=== PATIENT | female | born 1985 | race Caucasian/White ===

== ENCOUNTER 2017-01-16 15:09 | Emergency (ER) | payer OTHER ==
[~2017-01-16] VITALS: Ht 170.2 cm; Wt 88.6 kg
[~2017-01-16 15:09] MED LIST: ETON1VAG VG; FLUO10CA20 PO; HYDR-4003 PO; IBUP-1827 PO; TRAZ-115 PO
[2017-01-16 15:14] VITALS: BP 143/93; PULSE 101; RESP 14; O2SAT 96
--- NOTE | 2017-01-16 15:56 | ED.REPORT ---
HPI-Rash / Abscess Date of Service Jan 16, 2017 ED Provider: Abundio Mcneill MD A 31 year old female with a history of periorbital cellulitis and depression presents to the ED complaining of a rash to her face and arm that first appeared a few days ago. Patient reports that her current symptoms feel similar to her previous episodes of MRSA. Associated symptoms include subjective fever. The lesions have become increasingly worse since onset and describes the pain as "glass under her skin". Patient last menstrual cycle was 2 weeks ago and she currently uses NuvaRing. She denies history of drug use. Nursing Notes Stated Complaint: MRSA ON ARMS Chief Complaint: Skin Rash/Abscess Nursing Notes Reviewed: Yes Allergies: Coded Allergies: No Known Allergies (Unverified , 07/09/14) Scheduled Doxycycline Hyclate (Doxycycline Hyclate) 100 Mg Capsule 100 MG PO BID Fluoxetine (Fluoxetine) 10 Mg Capsule 20 MG PO DAILY Scheduled PRN Hydrocodone-Acetaminophen 5-325 mg (Hydrocodone-Acetaminophen 5-325 mg) 1 Each Tablet 1 TABLET PO Q4H PRN PRN For Pain Ibuprofen (Ibuprofen) 600 Mg Tablet 600 MG PO QID PRN PRN For Pain Trazodone (Trazodone) 50 Mg Tablet 50 MG PO HS PRN PRN For Sleep Miscellaneous Medications Etonogestrel/Ethinyl Estradiol (Nuvaring Vaginal Ring) 1 Each Vag.ring 1 EACH VG General Time Seen by MD: 15:55 Chief Complaint Rash Hx Obtained From: Patient Arrived By: Walk-in Onset Occurred: 3 days ago Symptom Duration: Since onset Location: : Arm: Head/face Quality: Painful Severity: Current: Mild Severity: Maximum: Moderate Associated with: Reports Fever (subjective) Pertinent Negative: Pt denies other symptoms Recent Healthcare: No recent doctor visit, No recent hospitalization Past Medical History Past Medical History Hx of perioribatal cellulitis in Jun and Jul. Admitted in Jul 2014 Reports: GERD Reports: Depression Past Surgical History Jaw surgery at 20 year old Smoking History Never Smoker Social History Alcohol Use: "Social" Drug Use: Denies drug use Other Social History: Good social support, Local resident Occupation Lives with boyfriend and her parents. Works at [employer]. Ambulatory Status Independent Review of Systems pain to pustules Constitutional: Reports: Fever (Subjective), Denies: Chills Respiratory: Denies: Shortness of breath Cardiovascular: Denies: Chest pain GI: Denies: Abdominal pain, Nausea, Vomiting Skin: Reports Rash Complete sys rev & neg: except as marked. Neurologic: Denies: Change LOC Physical Exam Initial Vital Signs Vital Signs (First) Date Time Temp Pulse Resp B/P Pulse Ox O2 Delivery O2 Flow Rate FiO2 01/16/17 15:14 36.7 101 14 143/93 96 Initial VS: Reviewed Head / Eyes: Atraumatic, Normocephalic, PERRL Neck: Supple, Non-tender, Full range of motion Extremities: Vascular intact, Neuro intact, No swelling, No tenderness Neurologic: Alert, Oriented, Nonfocal Psychiatric: Mood/affect normal, Behavior normal, Normal thought content General/Constitutional: Awake, Alert Skin: Atraumatic, Color NL Rash / Lesion Notes: RASH: superficial 2 in pustules to the forearm, upper arm and face. Most appear drained with overlying honeycrisp layer No cellulitis No abscess No induration Respiratory / Chest: Atraumatic, Breath sounds NL, Breath sounds = bilat, No respiratory distress Cardiovascular: Heart rate NL, Regular rhythm, Heart sounds NL, No gallop, No murmurs, No rubs Abdomen: Atraumatic, Soft, Non-tender, No distention Re-Eval/Medical Decision Med Decision/Clinical Course Patient is a 31-year-old female with a history of MRSA who presents with superficial honey crusted pustules about her face and trunk. Here in the emergency department the patient is afebrile, hemodynamically stable without any evidence of cellulitis, abscess or significant deep tissue infection. Examination notable only for small superficial pustular rash. She has been using mupirocin and over this is not adequately treated the rash. Therefore, I have added a course of oral doxycycline and advised her to continue mupirocin as well. Discussed with her use of bleach baths in order to treat MRSA colonization. Follow-up and return precautions were reviewed in detail and she was discharged in good condition. Re-Evaluation/Progress : Time of Eval: 18:14 Patient Status: Condition improved Re-Evaluation/Progress Note: Patient is rechecked. She is informed of he results and diagnosis. All of the patient's questions are adressed. She understands and agrees with the treatment plan to discharge. Counseled Regarding: Diagnosis, Need for follow-up, When/why to return to ED Discharge & Departure Impression: Primary Impression: Skin pustule Additional Impression: History of MRSA infection Disposition: Home Discharge Condition All VS Reviewed: Yes Condition: Stable Patient Instructions: Methicillin Resistant Staphylococcus Aureus (ED) Additional Instructions: Thank you for seeking care at the emergency room. It is difficult for us to make definitive diagnoses in the ED but we believe that you are experiencing MRSA Our primary goal today in the ED was to evaluate you for any life-threatening conditions. Your evaluation was reassuring. You will be discharged with a prescription for doxycycline. I recommend you use a quarter cup of bleach in the bath to help relieve your symptoms. You should follow-up with your primary doctor in the next week. You should return to the ED immediately if you develop fevers, chills, shortness of breath, weakness or any other concerning signs or symptoms. Thank you for letting us partake in your care today. Referrals: Shabana La (PCP) [place] Attestation Portions of this note were transcribed by Levon Marie. I, Dr. Mcneill personally performed the history, physical exam and medical decision-making; I reviewed and confirmed the accuracy of the information in the transcribed note. Signed by: Christ Akers, 01/16/17 1900. copies to: Shabana La Beck O MD Jan 16, 2017 15:56 LEVON MARIE Jan 16, 2017 17:44
[2017-01-16 16:00] VITALS: PULSE 90; RESP 12; O2SAT 100
[2017-01-16] MEDS ORDERED: DOXY100C2 PO (18:11)
== END 2017-01-16 18:22 | disposition home or self-care (01) ==
LOC: SED 15:09
DX: L08.9 Local infection of the skin and subcutaneous tissue, unspecified (principal); K21.9 Gastro-esophageal reflux disease without esophagitis; Z86.19 Personal history of other infectious and parasitic diseases

== ENCOUNTER 2017-06-28 07:36 | Emergency (ER) | payer OTHER ==
[~2017-06-28] VITALS: Ht 172.7 cm; Wt 108.0 kg
[~2017-06-28 07:36] MED LIST changes: +DOXY100C2 PO
[2017-06-28 07:38] VITALS: BP 163/112; PULSE 88; RESP 16; O2SAT 100
--- NOTE | 2017-06-28 08:05 | ED.REPORT ---
HPI-Dental/Mouth Prob Date of Service Jun 28, 2017 ED Provider: Lavinia Leon MD The pt is a 31 y/o female w/ a hx of depression and jaw surgery presenting to the ED complaining of L molar pain. The pt reports the pain being very severe, causing her difficulty eating and decreased jaw ROM. The pt is searching for someone to perform a root canal but is having difficulty due to her insurance and credit scores. She also reports sensations of hot and cold through her body. The pt has been taking Ibuprofen for the pain but has not taken any this morning. Nursing Notes Stated Complaint: POSS ROOT CANAL IN PAIN Chief Complaint: L molar pain Nursing Notes Reviewed: Yes Allergies: Coded Allergies: No Known Allergies (Unverified , 07/09/14) Scheduled Doxycycline Hyclate (Doxycycline Hyclate) 100 Mg Capsule 100 MG PO BID Fluoxetine (Fluoxetine) 10 Mg Capsule 20 MG PO DAILY Scheduled PRN Hydrocodone-Acetaminophen 5-325 mg (Hydrocodone-Acetaminophen 5-325 mg) 1 Each Tablet 1 TABLET PO Q4H PRN PRN For Pain Ibuprofen (Ibuprofen) 600 Mg Tablet 600 MG PO QID PRN PRN For Pain Trazodone (Trazodone) 50 Mg Tablet 50 MG PO HS PRN PRN For Sleep Miscellaneous Medications Etonogestrel/Ethinyl Estradiol (Nuvaring Vaginal Ring) 1 Each Vag.ring 1 EACH VG General Time Seen by MD: 08:02 Chief Complaint Tooth pain (L molar ) Hx Obtained From: Patient Arrived By: Walk-in Symptom Duration: Since onset Recent Healthcare: No recent hospitalization, Recent doctor visit Similar Sx Previous: Yes Past Medical History Past Medical History Hx of perioribatal cellulitis in Jun and Jul. Admitted in Jul 2014 Reports: GERD Reports: Depression Past Surgical History Jaw surgery at 20 year old Smoking History Never Smoker Social History Alcohol Use: "Social" Drug Use: Denies drug use Other Social History: Good social support, Local resident Occupation Lives with boyfriend and her parents. Works at [employer] and [employer]. Ambulatory Status Independent Review of Systems Sensations of generalized "hot and cold"; Decreased jaw ROM secondary to pain; L jaw swelling; Ears / Nose / Throat: Reports: Toothache (L molar ) Complete sys rev & neg: except as marked. Physical Exam Initial Vital Signs Vital Signs (First) Date Time Temp Pulse Resp B/P Pulse Ox O2 Delivery O2 Flow Rate FiO2 06/28/17 07:38 36.6 88 16 163/112 100 Room Air Initial VS: Reviewed Head / Eyes: Atraumatic, Normocephalic, PERRL Respiratory: Breath sounds normal, Clear to auscultation, No respiratory distress Cardiovascular: Regular rate & rhythm, Heart sounds normal, Intact distal pulses Extremities: Vascular intact, Neuro intact, No swelling, No tenderness Skin: Warm, Dry, No cyanosis Neurologic: Alert, Oriented, Nonfocal ENT: Airway patent, Mucous membranes moist L angle of jaw is swollen Tooth #18 is tender Neck: Supple, Full range of motion L sided adenopathy General/Constitutional: Awake, Alert Behavior: Positive: Tearful Procedures Procedure Notes: 1 cc lido with epi and 2 cc .5bupicaine without (no buipivicaine with epi available in hospital due to backorder/shortages). 3cc infiltrated about tooth 18 with moderate relief and no complications Re-Eval/Medical Decision Source of Hx: Old records Re-Evaluation/Progress : Time of Eval: 09:29 Re-Evaluation/Progress Note: Applied numbing medication to the area. Counseled Regarding: Diagnosis, Lab results, Need for follow-up, When/why to return to ED Discharge & Departure Primary Impression: Dental infection Additional Impression: Pain, dental Disposition: Home Discharge Condition All VS Reviewed: Yes Condition: Stable Additional Instructions: thank you for coming in today. I am so sorry that you are hurting so much. Dental pain truly is horrible. You have done of the right things in contacting her dentist and trying to schedule a root canal. At some point you may simply be forced to choose the extraction option to deal with the pain Meantime, I have numbed you up and hope this will last for at least 6 hours today I will start you on amoxicillin 500 mg 3 times a day. We will give you 7 days and a dose of Diflucan 150 mg to use at the end of those antibiotics should you develop a vaginal yeast infection. Please call your dentist this morning. Good luck. Referrals: Joni De Oliveira MD Scribe Attestation Portions of this note were transcribed by Edil Ivan. I, Dr. Leon personally performed the history, physical exam and medical decision-making; I reviewed and confirmed the accuracy of the information in the transcribed note. copies to: Joni De Oliveira MD, Shawna L MD Jun 28, 2017 08:05 Edil Ivan Jun 28, 2017 09:08
[2017-06-28] MEDS ORDERED: Bupivacaine 0.5%/EPI 50 mL Inj SUBQ ONE (09:15)
[2017-06-28] MEDS ORDERED: Bupivacaine 0.5%/EPI 50 mL Inj ONE (09:16)
[2017-06-28] MEDS ORDERED: Lidocaine 1%-Epi 1:100,000 20 mL Inj ONE (09:23)
[2017-06-28] MEDS ORDERED: OXYC1TAB24 PO (09:57)
[2017-06-28] MEDS ORDERED: FLUC150T3 PO (09:57)
[2017-06-28] MEDS ORDERED: AMOX500C2 PO (09:57)
[2017-06-28 10:00] VITALS: BP 134/106; PULSE 81; RESP 14; O2SAT 97
== END 2017-06-28 10:03 | disposition home or self-care (01) ==
LOC: SED 07:36
DX: K04.7 Periapical abscess without sinus (principal); K08.89 Other specified disorders of teeth and supporting structures; F32.9 Major depressive disorder, single episode, unspecified; K21.9 Gastro-esophageal reflux disease without esophagitis; Z98.890 Other specified postprocedural states